=== PATIENT | female | born 1980 | race Two or more races ===

== ENCOUNTER 2016-08-06 09:32 | Emergency (ER) | payer SELFPAY ==
--- NOTE | ~2016-08-06 | ER ---
[facility]GE[facility] 36 Y [address] ROOM: [place] [address] LOCATION: ED ADMIT DATE: 08/06/2016 ER/Outpatient Report DISCHARGE DATE: 08/06/2016 FAMILY PHYSICIAN: PHYSICIAN, NO ATTENDING PHYSICIAN: Cong Jean Admission date and time documented on the medical record. I saw the patient at 0950 hours. CHIEF COMPLAINT: Sore throat, eye irritation. HISTORY OF PRESENT ILLNESS: This patient is a 36-year-old female who had right conjunctivitis this past Friday and was started on erythromycin ophthalmic ointment. The right eye improved, but she got it in her left eye. She has been using that without improvement. Today, she woke up with a sore throat with nasal congestion and posterior nasal drainage. No fever, chills, or sweats. Does have a mild cough. No chest pain or shortness of breath. No abdominal pain, nausea, vomiting, diarrhea, or urinary complaints. No lightheadedness, dizziness, syncope, or near syncope. No fall or trauma. No headache. Does have some eye discomfort and throat discomfort. No neck or spine pain. No joint or muscle swelling, redness, or pain. No skin eruptions or rash. No neurologic changes, psychiatric issues, or endocrine problems. Does have a past history of intermittent headaches. HOME MEDICATIONS: See attached medication list. ALLERGIES: IODINE. SOCIAL HISTORY: Nonsmoker and nondrinker. SIGNIFICANT PAST MEDICAL HISTORY: Headaches. OPERATIONS: Appendectomy and knee surgery. REVIEW OF SYSTEMS: All systems reviewed by me are negative with the exception of those discussed in the History of Present Illness. PATIENT'S NAME: [facility] AGE: 36 Y [address] ROOM: [place] [address] LOCATION: [facility] ADMIT DATE: 08/06/2016 ER/Outpatient Report DISCHARGE DATE: 08/06/2016 FAMILY PHYSICIAN: PHYSICIAN, DAVE ATTENDING PHYSICIAN: Cong Jean PHYSICAL EXAMINATION: VITAL SIGNS: Temperature 97.8, pulse 89, respirations 18, blood pressure 132/75, and O2 saturation on room air is 97%. HEAD: Normocephalic. EYES: Extraocular muscles intact. PERRL. Conjunctivae are injected bilaterally, left greater than right. EARS: Clear TMs bilaterally. NOSE: Mildly congested. THROAT: Clear. Mucous membranes moist. Posterior drainage noted. NECK: No nuchal rigidity. No thyromegaly or cervical adenopathy. Range of motion full. No tenderness. SPINE: Negative. LUNGS: Clear. Good air flow. No rales, rhonchi, or wheezes. HEART: Regular. Pulses are palpable. ABDOMEN: Soft, nondistended, and nontender. Good bowel tones. No organomegaly or abnormal masses palpable. EXTREMITIES: Intact. NEUROVASCULAR: Intact. SKIN: Clear. LABORATORY DATA: Rapid strep screen was negative. White count was 9500 with 72 segs, 21 lymphs, 5 monos, 2 eos, and 1 baso; hemoglobin was 15.6, hematocrit 46.8; and platelet count 272,000. IMPRESSION: Bilateral conjunctivitis with pharyngitis. Etiology uncertain, but most likely viral. PLAN: The patient is dismissed from the emergency department. Observation. Activity as tolerated. Warm moist packs to eyes bilaterally intermittently as needed. Continue and use erythromycin ophthalmic ointment at least for 7 to 10 days. Tzda-nbv-aegmqgt throat lozenges, sprays, or gargles as needed to soothe throat. May use warm, saltwater gargles. Tylenol or ibuprofen 2 every 4 to 6 hours as needed. Watch for fever spikes, and fever greater than 101 for 24 hours needs to be re-evaluated. Discussion ensued with the patient and her in regard to my findings and recommendations, they understand. CONG JEAN MD SDS/modl PATIENT'S NAME: JING PRASAD [facility] AGE: 36 Y [address] ROOM: [place], [place] [address] LOCATION: [facility] ADMIT DATE: 08/06/2016 ER/Outpatient Report DISCHARGE DATE: 08/06/2016 FAMILY PHYSICIAN: PHYSICIAN, NO ATTENDING PHYSICIAN: Cong Jean /[id number] d: 08/06/16 1615 t: 08/07/16 0609, OUTPATIENT REPORT
[2016-08-06 10:21] LABS: BASOPHIL # 0.1 K/uL (0.0-0.2); BASOPHIL % 0.7 %; EOSINOPHIL # 0.2 K/uL (0.0-0.5); EOSINOPHIL % 1.8 %; HEMATOCRIT 46.8 % (33.0-46.0); HEMOGLOBIN 15.6 g/dL (11.0-15.0); IMMATURE GRANULOCYTE % 0.1 %; LYMPHOCYTE # 1.9 K/uL (0.8-4.0); LYMPHOCYTE % 20.5 %; MCH 30.3 pg (27.0-34.0); MCHC 33.3 gm/dL (32.0-36.5); MCV 90.9 fl (83.0-98.0); MONOCYTE # 0.5 K/uL (0.0-1.0); MONOCYTE % 5.1 %; MPV 11.7 fl (9.4-12.4); NEUTROPHIL # (ANC) 6.8 K/uL (1.8-7.8); NEUTROPHIL % 71.8 %; NRBC % 0 /100WBC (0-0.00); PLATELET COUNT 272 K/uL (150-450); RBC 5.15 M/uL (3.50-5.50); RDW-CV 12.9 % (11.9-14.6); WBC 9.5 K/uL (4.0-11.0)
== END 2016-08-06 11:11 | disposition disaster alternative care site (69) ==
LOC: GMED 09:32
PROVIDERS: Emergency Medicine
DX: H10.9 Unspecified conjunctivitis (principal); J02.9 Acute pharyngitis, unspecified; Z91.09 Other allergy status, other than to drugs and biological substances; Z90.49 Acquired absence of other specified parts of digestive tract